=== PATIENT | male | born 1945 | race African-American/Black ===

== ENCOUNTER → 2018-07-06 | Outpatient (CLI) | payer MEDICARE ==
[2018-07-06 12:18] LABS: ALANINE AMINOTRANSFERASE 47 U/L (21-72); ALBUMIN 3.8 g/dL (3.5-5.0); ALKALINE PHOSPHATASE 69 U/L (38-126); ANION GAP 10 (5-19); ASPARTATE AMINO TRANSFERASE 51 U/L (17-59); BILIRUBIN,DIRECT 0.4 mg/dL (0.0-0.4); BILIRUBIN,TOTAL 0.7 mg/dL (0.2-1.3); BLOOD UREA NITROGEN 37 mg/dL (7-20); CALCIUM 9.6 mg/dL (8.4-10.2); CARBON DIOXIDE 26 mmol/L (22-30); CHLORIDE 105 mmol/L (98-107); GLUCOSE 89 mg/dL (75-110); POTASSIUM 4.3 mmol/L (3.6-5.0); SODIUM 140.8 mmol/L (137-145); TOTAL PROTEIN 7.3 g/dL (6.3-8.2)
== END ==
LOC: OD 11:06
PROVIDERS: ATTEND Internal Medicine Geriatric Medicine
DX: R06.02 Shortness of breath (principal); I10 Essential (primary) hypertension
CPT/HCPCS: 36415; 80053; 83880

== ENCOUNTER 2018-07-07 11:58 | Observation (INO) | payer MEDICARE ==
[2018-07-07] MEDS ORDERED: ASPIRIN 81 MG TABLET, CHEWABLE PO ONE (12:39)
--- NOTE | 2018-07-07 12:40 | ER Document Report ---
ED Medical Screen (RME) - General TRAVEL OUTSIDE OF THE [place] IN LAST 30 DAYS: No <SUHAIL CANALES - Last Filed: 07/07/18 12:39> <KELSI MORRISON - Last Filed: 07/07/18 15:12> - General Chief Complaint: Shortness Of Breath Stated Complaint: SHORTNESS OF BREATH Time Seen by Provider: 07/07/18 12:35 Notes: 72 years old male with a history of coronary artery disease presents today with progressive increasing shortness of breath. No chest pain. No fever chills. Examination-lower lung field has inspiratory rales (SUHAIL CANALES) - Related Data Allergies/Adverse Reactions: RAFAEL Inhibitors [Rafael Inhibitors] Allergy (Severe, Verified 07/07/18 14:04) Angioneurotic Edema ACEINHIBITORS [RAFAEL Inhibitors] Allergy (Severe, Verified 07/07/18 14:04) Angioneurotic Edema Past Medical History - Social History Chew tobacco use (# tins/day): No Frequency of alcohol use: Occasional Drug Abuse: None - Past Medical History Cardiac Medical History: Reports: Hx Heart Attack - x2, Hx Hypertension Renal/ Medical History: Denies: Hx Peritoneal Dialysis Past Surgical History: Reports: Hx Orthopedic Surgery - yang arms, yang legs <SUHAIL CANALES - Last Filed: 07/07/18 12:39> - Vital signs Vitals: Temp Pulse Resp BP Pulse Ox 97.7 F 89 20 121/75 96 07/07/18 12:04 07/07/18 12:04 07/07/18 12:04 07/07/18 12:04 07/07/18 12:04 Course <SUHAIL CANALES - Last Filed: 07/07/18 12:39> - Laboratory Result Diagrams: 07/07/18 13:40 07/07/18 13:40 - Diagnostic Test Radiology reviewed: Image reviewed - pulmonary edema, b/l pleura effusions, Reports reviewed <KELSI MORRISON - Last Filed: 07/07/18 15:12> - Re-evaluation Re-evalutation: 07/07/18 14:49 Patient's clinical findings as well as chest x-ray consistent with heart failure. Spoke to Dr. Arreola patient will be admitted for IV Lasix and kidney function monitoring. 07/07/18 15:11 (KELSI MORRISON) - Vital Signs Vital signs: Temp Pulse Resp BP Pulse Ox 97.7 F 89 39 H 136/89 H 94 07/07/18 12:04 07/07/18 12:04 07/07/18 14:00 07/07/18 13:45 07/07/18 14:00 - Laboratory Laboratory results interpreted by me: 07/07/18 07/07/18 07/07/18 13:40 13:40 13:40 Hgb 12.4 L Hct 37.3 L MCV 72 L MCH 23.9 L RDW 14.8 H BUN 28 H Direct Bilirubin 0.6 H NT-Pro-B Natriuret Pep 8440 H Doctor's Discharge <SUHAIL CANALES - Last Filed: 07/07/18 12:39> <KELSI MORRISON - Last Filed: 07/07/18 15:12> - Discharge Clinical Impression: Congestive heart failure Qualifiers: Heart failure type: unspecified Heart failure chronicity: unspecified Qualified Code(s): I50.9 - Heart failure, unspecified Condition: Fair Disposition: ADMITTED OBSERVATION Referrals: JOSÉ LUIS SHEPHERD MD [Primary Care Provider] - Follow up as needed
--- NOTE | 2018-07-07 13:53 | RADIOLOGY REPORT (SQ) ---
EXAM DESCRIPTION: CHEST SINGLE VIEW COMPLETED DATE/TIME: 07/07/2018 1:45 pm REASON FOR STUDY: Shortness of breath COMPARISON: None. EXAM PARAMETERS: NUMBER OF VIEWS: One view. TECHNIQUE: Single frontal radiographic view of the chest acquired. RADIATION DOSE: NA LIMITATIONS: large patient, portable technique FINDINGS: LUNGS AND PLEURA: Trace bilateral pleural effusions are present. There is pulmonary vascular congestion with mild right perihilar pulmonary edema. No pneumothorax. MEDIASTINUM AND HILAR STRUCTURES: No masses. Contour normal. HEART AND VASCULAR STRUCTURES: Moderate cardiomegaly BONES: No acute findings. HARDWARE: None in the chest. OTHER: No other significant finding. IMPRESSION: Moderate cardiomegaly Trace bilateral pleural effusions with right perihilar airspace disease worrisome for pulmonary edema . TECHNICAL DOCUMENTATION: JOB ID: [id number] [employer]- All Rights Reserved Reading location - IP/workstation name: [email or web address]
[2018-07-07 13:54] LABS: ABSOLUTE BASOPHILS # (AUTO) 0.1 10^3/uL (0.0-0.2); ABSOLUTE EOSINOPHILS # (AUTO) 0.4 10^3/uL (0.0-0.6); ABSOLUTE LYMPHOCYTES (AUTO) 1.9 10^3/uL (0.5-4.7); ABSOLUTE MONOCYTES (AUTO) 0.8 10^3/uL (0.1-1.4); ABSOLUTE NEUT (AUTO) 5.8 10^3/uL (1.7-8.2); EOSINOPHILS % (AUTO) 4.6 % (0-6); HEMATOCRIT 37.3 % (37.9-51.0); HEMOGLOBIN 12.4 g/dL (13.5-17.0); LYMPHOCYTES % (AUTO) 21.2 % (13-45); MEAN CORPUSCULAR HEMOGLOBIN 23.9 pg (27.0-33.4); MEAN CORPUSCULAR HGB CONC 33.1 g/dL (32.0-36.0); MEAN CORPUSCULAR VOLUME 72 fl (80-97); MONOCYTES % (AUTO) 9.2 % (3-13); PLATELET COUNT 239 10^3/uL (150-450); RED BLOOD COUNT 5.17 10^6/uL (4.35-5.55); RED CELL DISTRIBUTION WIDTH 14.8 % (11.5-14.0); TOTAL CELLS COUNTED % (AUTO) 100 %
[2018-07-07 14:14] LABS: ALANINE AMINOTRANSFERASE 46 U/L (21-72); ALBUMIN 3.8 g/dL (3.5-5.0); ALKALINE PHOSPHATASE 59 U/L (38-126); ANION GAP 8 (5-19); ASPARTATE AMINO TRANSFERASE 48 U/L (17-59); BILIRUBIN,DIRECT 0.6 mg/dL (0.0-0.4); BILIRUBIN,TOTAL 1.1 mg/dL (0.2-1.3); BLOOD UREA NITROGEN 28 mg/dL (7-20); CALCIUM 9.2 mg/dL (8.4-10.2); CARBON DIOXIDE 27 mmol/L (22-30); CHLORIDE 104 mmol/L (98-107); GLUCOSE 92 mg/dL (75-110); POTASSIUM 4.4 mmol/L (3.6-5.0); SODIUM 138.9 mmol/L (137-145); TOTAL PROTEIN 7.4 g/dL (6.3-8.2)
[2018-07-07 14:24] LABS: NT PRO BNP 8440 pg/mL (5-900)
[2018-07-07 14:25] LABS: TROPONIN I < 0.012 ng/mL
--- NOTE | 2018-07-07 15:12 | ER Document Report ---
ED Respiratory Problem - General Mode of Arrival: Ambulatory Information source: Patient TRAVEL OUTSIDE OF THE [place] IN LAST 30 DAYS: No <TYLER HIRSCH - Last Filed: 07/08/18 20:00> <KELSI MORRISON - Last Filed: 07/08/18 22:01> - General Chief Complaint: Shortness Of Breath Stated Complaint: SHORTNESS OF BREATH Time Seen by Provider: 07/07/18 12:35 Notes: 72-year-old male who presents to the emergency department today with complaints of shortness of breath. Patient states he had pneumonia 1 month ago and he has had increasing shortness of breath since getting over this pneumonia. Patient states he no longer has the cough that he had when he had the pneumonia. Patient states he noticed he gets very short of breath when lying flat or when walking. Patient states he was seen by his PCP yesterday for this who told him to increase his Lasix from 1 a day to 2 a day. Patient mentions that in 3 days his daughter is getting and he would like to be able to be there to walk her down the aisle. Patient denies any cough or shortness of breath. ( TYLER HIRSCH) - Related Data Allergies/Adverse Reactions: RAFAEL Inhibitors [Rafael Inhibitors] Allergy (Severe, Verified 07/07/18 14:04) Angioneurotic Edema ACEINHIBITORS [RAFAEL Inhibitors] Allergy (Severe, Verified 07/07/18 14:04) Angioneurotic Edema Past Medical History - General Information source: Patient, [facility] Records - Social History Smoking Status: Former Smoker Cigarette use (# per day): No Chew tobacco use (# tins/day): No Frequency of alcohol use: Occasional Drug Abuse: None Lives with: Family Family History: Reviewed & Not Pertinent Patient has suicidal ideation: No Patient has homicidal ideation: No - Past Medical History Cardiac Medical History: Reports: Hx Heart Attack - x2, Hx Hypertension Past Surgical History: Reports: Hx Orthopedic Surgery - yang arms, yang legs - Immunizations Hx Pneumococcal Vaccination: 07/11/11 <TYLER HIRSCH - Last Filed: 07/08/18 20:00> Review of Systems - Review of Systems Constitutional: No symptoms reported EENT: No symptoms reported Cardiovascular: denies: Chest pain Respiratory: See HPI, Short of breath. denies: Cough Gastrointestinal: No symptoms reported Genitourinary: No symptoms reported Male Genitourinary: No symptoms reported Musculoskeletal: No symptoms reported Skin: No symptoms reported Hematologic/Lymphatic: No symptoms reported Neurological/Psychological: No symptoms reported -: Yes All other systems reviewed and negative <TYLER HIRSCH - Last Filed: 07/08/18 20:00> Physical Exam <TYLER HIRSCH - Last Filed: 07/08/18 20:00> <KELSI MORRISON - Last Filed: 07/08/18 22:01> - Vital signs Vitals: Temp Pulse Resp BP Pulse Ox 97.7 F 89 20 121/75 96 07/07/18 12:04 07/07/18 12:04 07/07/18 12:04 07/07/18 12:04 07/07/18 12:04 - Notes Notes: Physical Exam: General: Alert, appears well. HEENT: Normocephalic. Atraumatic. PERRL. Extraocular movements intact. Oropharynx clear. Neck: Supple. Non-tender. Respiratory: No respiratory distress. Crackles at the bases bilaterally. Cardiovascular: Regular rate and rhythm. Abdominal: Normal Inspection. Non-tender. No distension. Normal Bowel Sounds. Back: Non-tender. No deformity or step off. Extremities: Moves all four extremities. Upper extremities: Normal inspection. Normal ROM. Lower extremities: 1+ edema bilaterally. Normal ROM. Neurological: Normal cognition. AAOx4. Normal speech. Psychological: Normal affect. Normal Mood. Skin: Warm. Dry. Normal color. (TYLER HIRSCH) Course - Laboratory Result Diagrams: 07/08/18 03:57 07/08/18 03:57 <TORREYGINATYLER - Last Filed: 07/08/18 20:00> - Laboratory Result Diagrams: 07/08/18 03:57 07/08/18 03:57 - Diagnostic Test Radiology reviewed: Image reviewed, Reports reviewed - Pulmonary edema and b/l pleural effusions <KELSI MORRISON - Last Filed: 07/08/18 22:01> - Re-evaluation Re-evalutation: 07/07/18 15:14 Patient's clinical presentation and labs and chest x-ray consistent with CHF exacerbation patient will be admitted to Dr. Locke for diuresis. (KELSI MORRISON) - Vital Signs Vital signs: Temp Pulse Resp BP Pulse Ox 97.8 F 82 16 110/74 98 10/04/18 18:25 07/08/18 18:25 07/08/18 18:25 07/08/18 18:25 07/08/18 18:25 - Laboratory Laboratory results interpreted by me: 07/07/18 07/07/18 07/07/18 13:40 13:40 13:40 Hgb 12.4 L Hct 37.3 L MCV 72 L MCH 23.9 L RDW 14.8 H BUN 28 H Direct Bilirubin 0.6 H NT-Pro-B Natriuret Pep 8440 H Discharge <TYLER HIRSCH - Last Filed: 07/08/18 20:00> - Discharge Admitting Provider: [facility] Unit Admitted: Telemetry <KELSI MORRISON - Last Filed: 07/08/18 22:01> - Discharge Clinical Impression: Congestive heart failure Qualifiers: Heart failure type: unspecified Heart failure chronicity: unspecified Qualified Code(s): I50.9 - Heart failure, unspecified Condition: Fair Disposition: ADMITTED OBSERVATION Scribe Attestation: 07/08/18 22:01 I personally performed the services described in the documentation, reviewed and edited the documentation which was dictated to the scribe in my presence, and it accurately records my words and actions. (KELSI MORRISON) Scribe Documentation - Scribe Written by Devine:: Don Yanez, 07/08/2018 2005 acting as scribe for :: Jamie <TYLER HIRSCH - Last Filed: 07/08/18 20:00>
[2018-07-07] MEDS ORDERED: FEBUXOSTAT 40 MG TABLET PO PRN (18:28)
--- NOTE | 2018-07-07 18:55 | PDOC H&P ---
History of Present Illness Admission Date/PCP: 07/07/18 15:55 JOSÉ LUIS JOAO Patient complains of: Difficulty with breathing History of Present Illness: ADOLFO GHOSH is a 72 year old male patient known to my practice who presented to the office yesterday with similar complain of worsening shortness of breath for couple of days after decrease of his oral Lasix short course therapy at 40 mg p.o bid. Patient was offered hospitalization but due to his daughter upcoming wedding he preferred outpatient oral management with increase of his Lasix to 40 mg p.o bid. Patient had outpatient NT-ProBNP evaluated and reported elevated at about 9000. He claimed that upon walking to his mail box earlier today he became very short of breath and weak that he had to hang on to nearby parked vehicle to avoid falling to the ground. He denied any associated chest pain, palpitation, diaphoresis, nausea or vomiting. Patient did described PND and 2 pillow orthopnea yesterday. He reported compliance with his medication and admitted to drinking lots of water. HE reported limited salt intake. His morbidities include HTN, CAD s/p old VT x 2, Hypothyroidism, osteoarthritis with chronic pain syndrome. He denied alcohol abuse or cigarette smoking. Past Medical History Cardiac Medical History: Reports: Myocardial Infarction - x2, Hypertension Endocrine Medical History: Reports: Hypothyroidism Past Surgical History Past Surgical History: Reports: Orthopedic Surgery - yang arms, yang legs Social History Smoking Status: Former Smoker - Advance Directive Resuscitation Status: Full Code Family History Parental Family History Reviewed: Yes Children Family History Reviewed: Yes Sibling(s) Family History Reviewed.: Yes Medication/Allergy Home Medications: Amlodipine Besylate [Norvasc 10 mg Tablet] 10 mg PO DAILY 07/07/18 Aspirin [Adult Low Dose Aspirin EC] 81 mg PO DAILY 07/07/18 Febuxostat [Uloric 40 mg Tablet] 40 mg PO DAILYP PRN 07/07/18 Furosemide [Lasix 40 mg Tablet] 40 mg PO DAILY 07/07/18 Levothyroxine Sodium [Synthroid] 125 mcg PO Q6AM 07/07/18 Allergies/Adverse Reactions: RAFAEL Inhibitors [Rafael Inhibitors] Allergy (Severe, Verified 07/07/18 14:04) Angioneurotic Edema ACEINHIBITORS [RAFAEL Inhibitors] Allergy (Severe, Verified 07/07/18 14:04) Angioneurotic Edema Review of Systems Constitutional: PRESENT: weakness Eyes: PRESENT: visual disturbances Ears: ABSENT: hearing changes Nose, Mouth, and Throat: ABSENT: as per HPI, headache(s), mouth pain, sore throat, vertigo, other Cardiovascular: PRESENT: dyspnea on exertion, orthropnea Respiratory: PRESENT: dyspnea Gastrointestinal: ABSENT: abdominal pain, constipation, diarrhea, hematemesis, hematochezia, nausea, vomiting Genitourinary: ABSENT: dysuria, hematuria Musculoskeletal: PRESENT: deformity - related to joint arthritis Integumentary: ABSENT: rash, wounds Neurological: ABSENT: abnormal gait, abnormal speech, confusion, dizziness, focal weakness, syncope Psychiatric: ABSENT: anxiety, depression, homidical ideation, suicidal ideation Endocrine: ABSENT: cold intolerance, heat intolerance, polydipsia, polyuria Hematologic/Lymphatic: ABSENT: easy bleeding, easy bruising, lymphadenopathy Allergic/Immunologic: ABSENT: seasonal rhinorrhea Physical Exam Vital Signs: Temp Pulse Resp BP Pulse Ox 99.1 F 89 26 H 141/82 H 94 07/07/18 17:04 07/07/18 12:04 07/07/18 17:02 07/07/18 17:02 07/07/18 17:02 General appearance: PRESENT: mild distress - respiratory distress Head exam: PRESENT: atraumatic, normocephalic Eye exam: PRESENT: conjunctiva pink, EOMI, PERRLA. ABSENT: scleral icterus Ear exam: PRESENT: normal external ear exam Mouth exam: PRESENT: moist Neck exam: PRESENT: full ROM, JVD - elevated. ABSENT: carotid bruit, lymphadenopathy, tenderness, thyromegaly, tracheal deviation Respiratory exam: PRESENT: clear to auscultation yang, decreased breath sounds - at lung bases Cardiovascular exam: PRESENT: RRR. ABSENT: diastolic murmur, rubs, systolic murmur Pulses: PRESENT: +1 pedal pulses bilateral Vascular exam: PRESENT: normal capillary refill. ABSENT: pallor GI/Abdominal exam: PRESENT: normal bowel sounds, soft. ABSENT: distended, guarding, mass, organolmegaly, rebound, tenderness Rectal exam: PRESENT: deferred Extremities exam: ABSENT: pedal edema Musculoskeletal exam: PRESENT: ambulatory Neurological exam: PRESENT: alert, awake, oriented to person, oriented to place , oriented to time, oriented to situation, CN II-XII grossly intact. ABSENT: motor sensory deficit Psychiatric exam: PRESENT: appropriate affect, normal mood. ABSENT: homicidal ideation, suicidal ideation Skin exam: PRESENT: dry, intact, warm. ABSENT: cyanosis, rash Results Laboratory Results: I reviewed his laboratory results on [employer] and form significant part of my medical decision making on this case. 07/07/18 16:30 Troponin I < 0.012 Impressions: Chest X-Ray 07/07/18 12:39 IMPRESSION: Moderate cardiomegaly Trace bilateral pleural effusions with right perihilar airspace disease worrisome for pulmonary edema. Assessment & Plan - Diagnosis (1) Acute systolic CHF (congestive heart failure), NYHA class 2 Is this a current diagnosis for this admission?: Yes Plan: See admitting attending orders. (2) HTN (hypertension) Qualifiers: Hypertension type: essential hypertension Qualified Code(s): I10 - Essential (primary) hypertension Is this a current diagnosis for this admission?: Yes Plan: See admitting attending orders. (3) Hypothyroidism Qualifiers: Hypothyroidism type: acquired Qualified Code(s): E03.9 - Hypothyroidism, unspecified Is this a current diagnosis for this admission?: Yes Plan: See admitting attending orders. (4) Coronary artery disease Qualifiers: Coronary Disease-Associated Artery/Lesion type: [place] artery [place] vs. transplanted heart: [place] heart Associated angina: without angina Qualified Code(s): I25.10 - Atherosclerotic heart disease of [place] coronary artery without angina pectoris Is this a current diagnosis for this admission?: Yes Plan: See admitting attending orders. (5) Old VT (myocardial infarction) Is this a current diagnosis for this admission?: Yes Plan: See admitting attending orders. - Time Time Spent: 50 to 70 Minutes Medications reviewed and adjusted accordingly: Yes Anticipated discharge: Home Within: within 24 hours - As per patient's request due to his daughter's wedding on 07/09/2018. - Inpatient Certification Based on my medical assessment, after consideration of the patient's comorbidities, presenting symptoms, or acuity I expect that the services needed warrant INPATIENT care.: No I certify that my determination is in accordance with my understanding of Medicare's requirements for reasonable and necessary INPATIENT services [42 CFR 412.3e].: No Post Hospital Care: D/C Rn Baby Documentation - Plan Summary Plan Summary: See admitting attending orders.
[2018-07-07] MEDS: VALSARTAN 160 MG TABLET PO SCH (20:32)
[2018-07-07] MEDS: CARVEDILOL 3.125 MG TABLET PO SCH (21:52)
[2018-07-07] MEDS: FUROSEMIDE INJ/PF 40 MG/4 ML SDV IV SCH (21:52)
[2018-07-08 05:05] LABS: ABSOLUTE BASOPHILS # (AUTO) 0.1 10^3/uL (0.0-0.2); ABSOLUTE EOSINOPHILS # (AUTO) 0.6 10^3/uL (0.0-0.6); ABSOLUTE MONOCYTES (AUTO) 0.8 10^3/uL (0.1-1.4); ABSOLUTE NEUT (AUTO) 4.5 10^3/uL (1.7-8.2); BASOPHILS % (AUTO) 0.8 % (0-2); EOSINOPHILS % (AUTO) 7.6 % (0-6); HEMATOCRIT 35.8 % (37.9-51.0); HEMOGLOBIN 11.5 g/dL (13.5-17.0); LYMPHOCYTES % (AUTO) 24.9 % (13-45); MEAN CORPUSCULAR HEMOGLOBIN 23.5 pg (27.0-33.4); MEAN CORPUSCULAR HGB CONC 32.3 g/dL (32.0-36.0); MEAN CORPUSCULAR VOLUME 73 fl (80-97); MONOCYTES % (AUTO) 10.1 % (3-13); PLATELET COUNT 191 10^3/uL (150-450); RED BLOOD COUNT 4.91 10^6/uL (4.35-5.55); SEGMENTED NEUTROPHILS % (AUTO) 56.6 % (42-78); TOTAL CELLS COUNTED % (AUTO) 100 %
[2018-07-08 05:27] LABS: ANION GAP 8 (5-19); BLOOD UREA NITROGEN 24 mg/dL (7-20); CALCIUM 8.9 mg/dL (8.4-10.2); CARBON DIOXIDE 26 mmol/L (22-30); CHLORIDE 106 mmol/L (98-107); CHOLESTEROL 136.96 mg/dL (0-200); GLUCOSE 87 mg/dL (75-110); POTASSIUM 3.8 mmol/L (3.6-5.0); SODIUM 140.1 mmol/L (137-145); TRIGLYCERIDES 60 mg/dL (<150)
[2018-07-08 05:37] LABS: DIRECT LDL 81 mg/dL (<100)
[2018-07-08 05:41] LABS: FREE T3 2.21 pg/mL (2.77-5.27); FREE T4 (FREE THYROXINE) 1.3 ng/dL (0.78-2.19)
[2018-07-08 05:54] LABS: THYROID STIMULATING HORMONE 3.83 uIU/mL (0.47-4.68)
[2018-07-08] MEDS ORDERED: LEVOTHYROXINE SODIUM 0.025 MG TABLET PO SCH (06:00)
[2018-07-08] MEDS ORDERED: (PENDING PHARMACY ID) (Levothyroxine Sodium [Synthroid] 125 MCG) PO SCH (06:00)
[2018-07-08] MEDS ORDERED: LANSOPRAZOLE 30 MG TAB.RAP.DR PO SCH (06:00)
[2018-07-08] MEDS ORDERED: LEVOTHYROXINE SODIUM 0.1 MG TABLET PO SCH (06:00)
--- NOTE | 2018-07-08 08:55 | EKG REPORT ---
SEVERITY:- ABNORMAL ECG - SINUS RHYTHM VENTRICULAR TRIGEMINY LEFT BUNDLE BRANCH BLOCK APCs AND VPCs : Confirmed by: Adrienne Oneil 08-Jul-2018 08:55:10
[2018-07-08] MEDS: CARVEDILOL 3.125 MG TABLET PO SCH (09:41)
[2018-07-08] MEDS: FUROSEMIDE INJ/PF 40 MG/4 ML SDV IV SCH (09:41)
[2018-07-08] MEDS ORDERED: ASPIRIN 81 MG TABLET, ENT COATED PO SCH (10:00)
[2018-07-08] MEDS ORDERED: ENOXAPARIN SODIUM INJ 40 MG/0.4 ML DISP.SYRIN SUBCUT SCH (10:00)
--- NOTE | 2018-07-08 13:21 | XCELERA REPORT ---
[address] [address] Transthoracic Echocardiogram Report Name: ADOLFO GHOSH Age: 72 yrs Gender: Male : 1945 Patient Status: Inpatient Patient Location: [address] [place] [address] Study Date: 07/08/2018 07:48 AM Height: 71 in Weight: 218 lb BSA: 2.2 m2 Procedure: A two-dimensional transthoracic echocardiogram with color flow and Doppler was performed. Study Quality: Fair. Reason For Study: Acute systolic CHF History: Acute systolic CHF. Ordering Physician: JOSÉ LUIS SHEPHERD Performed By: Chuyita Uriarte Interpretation Summary The left ventricle is moderately dilated. There is normal left ventricular wall thickness. LV EF is 25% Left ventricular systolic function is severely reduced. LV diastolic function not assessed. There is severe global hypokinesis of the left ventricle. The right ventricle is mildly dilated. The right ventricular systolic function is normal. The right atrium is mildly dilated. The left atrium is moderately dilated. There is no evidence of mitral valve prolapse. There is no vegetation seen on the mitral valve. There is no mitral valve stenosis. There is a moderate amount of mitral regurgitation There is no aortic valve stenosis There is no LVOT obstruction. There is aortic sclerosis without aortic stenosis. There is a mild amount of aortic regurgitation There is no tricuspid stenosis. There is a mild amount of tricuspid regurgitation There is mild pulmonary hypertension by echo RVSP is 36 mm of Hg , with RA mean of 10. There is no pulmonic valvular stenosis. There is a mild amount of pulmonic regurgitation The aortic root is normal size. There is no pericardial effusion. MMode/2D Measurements & Calculations RVDd: 4.0 cm LVIDd: 6.7 cm FS: 13.4 % Ao root diam: 2.7 cm IVSd: 1.0 cm LVIDs: 5.8 cm EDV(Teich): 231.2 ml Ao root area: 5.7 cm2 LVPWd: 1.2 cm ESV(Teich): 166.7 ml LA dimension: 4.8 cm EF(Teich): 27.9 % LVOT diam: 2.4 cm LVOT area: 4.4 cm2 Doppler Measurements & Calculations MV E max jamison: MV P1/2t max jamison: Ao V2 max: AI max jamison: 102.5 cm/sec 134.4 cm/sec 114.7 cm/sec 263.7 cm/sec MV A max jamison: MV P1/2t: 71.1 msec Ao max PG: AI max P.0 cm/sec MVA(P1/2t): 3.1 cm2 5.3 mmHg 30.4 mmHg MV E/A: 1.3 MV dec slope: [place](V,D): 3.3 cm2 AI dec slope: 142.3 cm/sec2 553.5 cm/sec2 AI P1/2t: MV dec time: 0.27 sec 542.8 msec LV V1 max PG: MR max jamison: PA V2 max: PI end-d jamison: 3.0 mmHg 355.8 cm/sec 89.6 cm/sec 105.9 cm/sec LV V1 max: MR max P.7 mmHg PA max P.1 cm/sec 3.2 mmHg TR max jamison: AV P1/2t-pr_phl: MV P1/2t-pr_phl: 252.3 cm/sec 545.0 msec 53.6 msec TR max P.5 mmHg Left Ventricle The left ventricle is moderately dilated. There is normal left ventricular wall thickness. LV EF is 25%. Left ventricular systolic function is severely reduced. LV diastolic function not assessed. There is severe global hypokinesis of the left ventricle. There is no thrombus. Right Ventricle The right ventricle is mildly dilated. The right ventricular systolic function is normal. Atria The right atrium is mildly dilated. The left atrium is moderately dilated. Mitral Valve There is no evidence of mitral valve prolapse. There is no vegetation seen on the mitral valve. There is no mitral valve stenosis. There is a moderate amount of mitral regurgitation. Aortic Valve There is no aortic valvular vegetation. There is no aortic valve stenosis. There is no LVOT obstruction. There is aortic sclerosis without aortic stenosis. There is a mild amount of aortic regurgitation. Tricuspid Valve There is no tricuspid stenosis. There is a mild amount of tricuspid regurgitation. There is mild pulmonary hypertension by echo. RVSP is 36 mm of Hg , with RA mean of 10. Pulmonic Valve There is no pulmonic valvular stenosis. There is a mild amount of pulmonic regurgitation. Great Vessels The aortic root is normal size. Effusions There is no pericardial effusion. : JOSÉ LUIS SHEPHERD > Aiyana Farmer
[2018-07-08 16:02] VITALS: BP 110/74
[2018-07-08] MEDS: VALSARTAN 160 MG TABLET PO SCH (17:32)
--- NOTE | 2018-07-08 18:15 | PDOC DISCHARGE SUMMARY ---
General - Admit/Disc Date/PCP Admission Date/Primary Care Provider: 07/07/18 15:55 JOSÉ LUIS JOAO Discharge Date: 07/08/18 - Discharge Diagnosis (1) Acute systolic CHF (congestive heart failure), NYHA class 2 Is this a current diagnosis for this admission?: Yes (2) HTN (hypertension) Is this a current diagnosis for this admission?: Yes (3) Hypothyroidism Is this a current diagnosis for this admission?: Yes (4) Coronary artery disease Is this a current diagnosis for this admission?: Yes (5) Old KS (myocardial infarction) Is this a current diagnosis for this admission?: Yes - Additional Information Resuscitation Status: Full Code Discharge Diet: Cardiac Discharge Activity: Activity As Tolerated, Balance Activity w/Rest, Weigh Daily Prescriptions: Carvedilol [Coreg 3.125 mg Tablet] 3.125 mg PO Q12 #60 tablet Potassium Chloride [Klor-Con 10] 10 meq PO BID #60 tablet.er Valsartan [Diovan 160 mg Tablet] 160 mg PO DAILY #30 tablet Home Medications: Aspirin [Adult Low Dose Aspirin EC] 81 mg PO DAILY 07/07/18 Febuxostat [Uloric 40 mg Tablet] 40 mg PO DAILYP PRN 07/07/18 Levothyroxine Sodium [Synthroid] 125 mcg PO Q6AM 07/07/18 Carvedilol [Coreg 3.125 mg Tablet] 3.125 mg PO Q12 #60 tablet 07/08/18 Furosemide [Lasix 40 mg Tablet] 40 mg PO BID 30 Days #60 07/08/18 Potassium Chloride [Klor-Con 10] 10 meq PO BID #60 tablet.er 07/08/18 Valsartan [Diovan 160 mg Tablet] 160 mg PO DAILY #30 tablet 07/08/18 History of Present Illness History of Present Illness: ADOLFO GHOSH is a 72 year old male patient known to my practice who presented to the office yesterday with similar complain of worsening shortness of breath for couple of days after decrease of his oral Lasix short course therapy at 40 mg p.o bid. Patient was offered hospitalization but due to his daughter upcoming wedding he preferred outpatient oral management with increase of his Lasix to 40 mg p.o bid. Patient had outpatient NT-Pro BNP evaluated and reported elevated at about 9000. He claimed that upon walking to his mail box earlier today he became very short of breath and weak that he had to hang on to nearby parked vehicle to avoid falling to the ground. He denied any associated chest pain, palpitation, diaphoresis, nausea or vomiting. Patient did described PND and 2 pillow orthopnea yesterday. He reported compliance with his medication and admitted to drinking lots of water. HE reported limited salt intake. His morbidities include HTN, CAD s/p old [place] x 2, Hypothyroidism, osteoarthritis with chronic pain syndrome. He denied alcohol abuse or cigarette smoking. Hospital Course Hospital Course: Patient responded to IV Lasix diuretic and adjustment in his medication regarding CHF management. His echocardiogram revealed LVEF at 25 % with severely reduced systolic function. There was severe global hypokinesis of the left ventricle. LV diastolic function was not assessed. Left ventricle and atrium were moderately dilated. There was moderate mitral regurgitation with mild aortic, pulmonary, and tricuspid valves regurgitation. There was mild pulmonary hypertension by echo criteria. There was no identifiable LV thrombus or mitral valve vegetation on echocardiogram. Patient will be discharge home today at his request so that he can attend his daughter's wedding tomorrow. He will follow up in the office as instructed upon discharge. We will make arrangement for outpatient cardiology consultation with possible cardiac catheterization. Physical Exam Vital Signs: Temp Pulse Resp BP Pulse Ox 97.8 F 82 16 110/74 98 07/08/18 16:00 07/08/18 16:00 07/08/18 16:00 07/08/18 16:00 07/08/18 16:00 Intake & Output 07/07/18 07/08/18 07/09/18 06:59 06:59 06:59 Intake Total 320 621 Output Total 800 750 Balance -480 -129 Weight 98.9 kg General appearance: PRESENT: no acute distress Head exam: PRESENT: atraumatic, normocephalic Eye exam: PRESENT: conjunctiva pink, EOMI, PERRLA. ABSENT: scleral icterus Ear exam: PRESENT: normal external ear exam Mouth exam: PRESENT: moist Respiratory exam: PRESENT: clear to auscultation yang Cardiovascular exam: PRESENT: RRR. ABSENT: diastolic murmur, rubs, systolic murmur Vascular exam: PRESENT: normal capillary refill. ABSENT: pallor GI/Abdominal exam: PRESENT: normal bowel sounds, soft. ABSENT: distended, guarding, mass, organolmegaly, rebound, tenderness Extremities exam: ABSENT: pedal edema Neurological exam: PRESENT: alert, awake, oriented to person, oriented to place , oriented to time, oriented to situation, CN II-XII grossly intact. ABSENT: motor sensory deficit Psychiatric exam: PRESENT: appropriate affect, normal mood. ABSENT: homicidal ideation, suicidal ideation Skin exam: PRESENT: dry, intact, warm. ABSENT: cyanosis, rash Results Laboratory Results: 07/08/18 03:57 07/08/18 03:57 07/08/18 07/08/18 07/08/18 03:57 03:57 03:57 WBC 8.0 RBC 4.91 Hgb 11.5 L Hct 35.8 L MCV 73 L MCH 23.5 L MCHC 32.3 RDW 15.0 H Plt Count 191 Seg Neutrophils % 56.6 Lymphocytes % 24.9 Monocytes % 10.1 Eosinophils % 7.6 H Basophils % 0.8 Absolute Neutrophils 4.5 Absolute Lymphocytes 2.0 Absolute Monocytes 0.8 Absolute Eosinophils 0.6 Absolute Basophils 0.1 Sodium 140.1 Potassium 3.8 Chloride 106 Carbon Dioxide 26 Anion Gap 8 BUN 24 H Creatinine 0.88 Est GFR ( Amer) > 60 Est GFR (Non-Af Amer) > 60 Glucose 87 Calcium 8.9 Magnesium 2.1 Triglycerides 60 Cholesterol 136.96 LDL Cholesterol Direct 81 VLDL Cholesterol 12.0 HDL Cholesterol 37 L TSH 3.83 Free T4 1.30 Free T3 pg/mL 2.21 L 07/07/18 16:30 Troponin I < 0.012 Impressions: Chest X-Ray 07/07/18 12:39 IMPRESSION: Moderate cardiomegaly Trace bilateral pleural effusions with right perihilar airspace disease worrisome for pulmonary edema. Qualifiers - * PATIENT BEING DISCHARGED WITH ANY OF THE FOLLOWING DIAGNOSIS: Heart Failure HF Pt being discharged on ACEI for LVEF less than 40%?: No Reason(s) for not prescribing ACEI:: Medical Contraindication HF Pt being discharged on ARBS for LVEF less than 40%?: Yes HF Pt with Afib discharged with Warfarin?: No Reason(s) for not prescribing Warfarin:: Not indicated HF Pt discharged on evidence-based Beta Neto:: Yes Plan Discharge Plan: Discharge home today. Follow up in the office as instructed upon discharge. I had extensive discussion with patient regarding his echocardiogram findings and need for cardiology follow up for further evaluation and management.
[2018-07-09] MEDS ORDERED: LANSOPRAZOLE 30 MG TAB.RAP.DR PO SCH (06:00)
== END 2018-07-08 19:03 | disposition home or self-care (01) ==
LOC: ER 11:58 → EH 15:55 → 5 18:45
PROVIDERS: ADMIT Internal Medicine Geriatric Medicine; ATTEND Internal Medicine Geriatric Medicine
DX: I11.0 Hypertensive heart disease with heart failure (principal); I50.21 Acute systolic (congestive) heart failure; E03.9 Hypothyroidism, unspecified; I25.10 Atherosclerotic heart disease of native coronary artery without angina pectoris; M19.90 Unspecified osteoarthritis, unspecified site; G89.4 Chronic pain syndrome; I27.20 Pulmonary hypertension, unspecified; I08.3 Combined rheumatic disorders of mitral, aortic and tricuspid valves; H53.9 Unspecified visual disturbance; I25.2 Old myocardial infarction; Z79.82 Long term (current) use of aspirin; Z79.899 Other long term (current) drug therapy; Z87.891 Personal history of nicotine dependence; Z87.01 Personal history of pneumonia (recurrent)
CPT/HCPCS: 93005; 99285; 36415 ×2; 84439; 83735 ×2; 84443; 85025 ×2; 80048; 80053; 84484; 84481; 80061; 83880; 93306; 71045; 93010; A9270 ×9; J1940 ×2; J1650; G0378

== ENCOUNTER 2018-09-04 05:13 | Inpatient (IN) | payer MEDICARE ==
--- NOTE | 2018-09-04 05:55 | ER Document Report ---
ED Medical Screen (RME) - General Chief Complaint: Breathing Difficulty Stated Complaint: DIFFICULTY BREATHING Notes: Does not 72-year-old male with past medical history of HTN, CAD s/p old [place] x 2, Hypothyroidism, osteoarthritis with chronic pain syndrome, and recent diagnosis of HFrEF presents to the emergency department for labored breathing, wheezing and "chest heaviness". Said it feels like there is fluid in his lungs and he said he had great difficulty just walking from the handicap parking spot in the emergency department parking lot to the front door. He denies fever, chest pain , dizziness, diaphoresis, palpitations, or falls. TRAVEL OUTSIDE OF THE [place] IN LAST 30 DAYS: No - Related Data Allergies/Adverse Reactions: RAFAEL Inhibitors [Rafael Inhibitors] Allergy (Severe, Verified 07/07/18 14:04) Angioneurotic Edema ACEINHIBITORS [RAFAEL Inhibitors] Allergy (Severe, Verified 07/07/18 14:04) Angioneurotic Edema Past Medical History - Past Medical History Cardiac Medical History: Reports: Hx Congestive Heart Failure, Hx Heart Attack - x2, Hx Hypertension Pulmonary Medical History: Reports: Hx Pneumonia Endocrine Medical History: Reports: Hx Hypothyroidism Renal/ Medical History: Denies: Hx Peritoneal Dialysis Past Surgical History: Reports: Hx Orthopedic Surgery - yang arms, yang legs Physical Exam - Respiratory Respiratory status: Respiratory distress - Mild, Other - End expiratory wheezing bilateral Doctor's Discharge - Discharge Referrals: JOSÉ LUIS SHEPHERD MD [Primary Care Provider] - Follow up as needed
[2018-09-04 06:23] LABS: ABSOLUTE BASOPHILS # (AUTO) 0.1 10^3/uL (0.0-0.2); ABSOLUTE EOSINOPHILS # (AUTO) 0.5 10^3/uL (0.0-0.6); ABSOLUTE LYMPHOCYTES (AUTO) 1.4 10^3/uL (0.5-4.7); ABSOLUTE MONOCYTES (AUTO) 0.7 10^3/uL (0.1-1.4); ABSOLUTE NEUT (AUTO) 5.2 10^3/uL (1.7-8.2); BASOPHILS % (AUTO) 0.7 % (0-2); EOSINOPHILS % (AUTO) 5.9 % (0-6); HEMATOCRIT 39.2 % (37.9-51.0); HEMOGLOBIN 12.7 g/dL (13.5-17.0); LYMPHOCYTES % (AUTO) 18.3 % (13-45); MEAN CORPUSCULAR HEMOGLOBIN 23.6 pg (27.0-33.4); MEAN CORPUSCULAR HGB CONC 32.4 g/dL (32.0-36.0); MEAN CORPUSCULAR VOLUME 73 fl (80-97); MONOCYTES % (AUTO) 9.5 % (3-13); PLATELET COUNT 231 10^3/uL (150-450); RED BLOOD COUNT 5.37 10^6/uL (4.35-5.55); RED CELL DISTRIBUTION WIDTH 16.1 % (11.5-14.0); SEGMENTED NEUTROPHILS % (AUTO) 65.6 % (42-78); TOTAL CELLS COUNTED % (AUTO) 100 %; WHITE BLOOD COUNT 7.9 10^3/uL (4.0-10.5)
[2018-09-04 06:37] LABS: ALANINE AMINOTRANSFERASE 76 U/L (21-72); ALBUMIN 3.6 g/dL (3.5-5.0); ALKALINE PHOSPHATASE 84 U/L (38-126); ANION GAP 12 (5-19); ASPARTATE AMINO TRANSFERASE 55 U/L (17-59); BILIRUBIN,DIRECT 0.2 mg/dL (0.0-0.4); BILIRUBIN,TOTAL 0.4 mg/dL (0.2-1.3); BLOOD UREA NITROGEN 30 mg/dL (7-20); CALCIUM 9.1 mg/dL (8.4-10.2); CARBON DIOXIDE 27 mmol/L (22-30); CHLORIDE 104 mmol/L (98-107); GLUCOSE 104 mg/dL (75-110); POTASSIUM 4.2 mmol/L (3.6-5.0); SODIUM 143.1 mmol/L (137-145); TOTAL PROTEIN 6.9 g/dL (6.3-8.2)
--- NOTE | 2018-09-04 06:38 | RADIOLOGY REPORT (SQ) ---
EXAM DESCRIPTION: XR CHEST 1 VIEW COMPLETED DATE/TME: 09/04/2018 05:56 CLINICAL HISTORY: 72 years, Male, dyspnea COMPARISON: 07/07/2018 chest x-ray NUMBER OF VIEWS: 1 TECHNIQUE: Frontal view the chest LIMITATIONS: None. FINDINGS: Stable cardiomegaly. Minor thickening of the right minor fissure. Lungs are otherwise clear. No pneumothorax. IMPRESSION: Stable cardiomegaly. Lungs are clear copyright 2011 [employer]- All Rights Reserved
[2018-09-04 06:49] LABS: NT PRO BNP 14200 pg/mL (5-900)
[2018-09-04 06:55] LABS: TROPONIN I < 0.012 ng/mL
--- NOTE | 2018-09-04 07:54 | EKG REPORT ---
SEVERITY:- ABNORMAL ECG - SINUS RHYTHM VENTRICULAR BIGEMINY PROBABLE LEFT ATRIAL ABNORMALITY LEFT BUNDLE BRANCH BLOCK : Confirmed by: Rodolfo Sheets MD 04-Sep-2018 07:53:57
--- NOTE | 2018-09-04 09:02 | RADIOLOGY REPORT (SQ) ---
EXAM DESCRIPTION: CTA CHEST COMPLETED DATE/TIME: 09/04/2018 8:42 am REASON FOR STUDY: sob/ elevated BNP no sign CHF/ ? PE COMPARISON: Same day chest radiograph TECHNIQUE: CT scan of the chest performed using helical scanning technique with dynamic intravenous contrast injection. Images reviewed with lung, soft tissue and bone windows. Reconstructed coronal and sagittal MPR images reviewed. Additional 3 dimensional post-processing performed to develop Maximal Intensity Projection images (OH P). All images stored on PACS. All CT scanners at this facility use dose modulation, iterative reconstruction, and/or weight based d osing when appropriate to reduce radiation dose to as low as reasonably achievable (ALARA). [facility]: Dose Right [facility]: CareDose [facility]: Dose Right [facility]: Teradose 4D [facility]: [facility] CONTRAST TYPE AND DOSE: contrast/concentration: Isovue 350.00 mg/ml; Total Contrast Delivered: 84.0 ml; Total Saline Delivered: 80.0 ml 84 mL IV of Omnipaque 350- low osmolar. Contrast bolus optimized for the pulmonary arteries. Not diagnostic for the aorta. RENAL FUNCTION: BUN 30 creatinine 1.24 RADIATION DOSE: CT Rad equipment meets quality standard of care and radiation dose reduction techniq ues were employed. CTDIvol: 20.4 - 79.4 mGy. DLP: 883 mGy-cm. . LIMITATIONS: None. FINDINGS: LUNGS AND PLEURA: Moderate right and trace left pleural effusion. Mild thickening of the interlobular septa of the lung apices and lung bases. No focal consolidation or pneumothorax. AORTA AND GREAT VESSELS: No aneurysm. Contrast bolus not optimized for the aorta. Mild calcified pl aque of the visualized aorta. Retroaortic left renal vein. HEART: Cardiomegaly. Mild coronary artery calcifications. Trace pericardial effusion. PULMONARY ARTERIES: No emboli visualized in the main pulmonary arteries or the segmental branches. HILAR AND MEDIASTINAL STRUCTURES: No identified masses. Multiple prominent mediastinal lymph nodes. HARDWARE: None in the chest. UPPER ABDOMEN: Moderate size hiatal hernia. Fat containing left adrenal lesion measuring 2.8 x 2.4 c m consistent with an adrenal myelolipoma. Trace fluid within the visualized upper abdomen. Trace am ount of fluid surrounds the visualize gallbladder. THYROID AND OTHER SOFT TISSUES: No masses. No adenopathy. BONES: No acute or significant finding. 3D MIPS: Confirm above findings. OTHER: No other significant finding. IMPRESSION: 1. No pulmonary embolus. 2. Cardiomegaly with a trace pericardial effusion and mild pulmonary vascular congestion. Moderate r ight and trace left pleural effusions. 3. Trace fluid within the visualized upper abdomen. Additional trace pericholecystic fluid which may be secondary to the additional free fluid within the abdomen or due to cholecystitis. If clinically indicated, dedicated right upper quadrant ultrasound can be obtained for further characterization. 4. Left adrenal myelolipoma. COMMENT: Quality ID # [id number]: Final reports with documentation of one or more dose reduction techniques (e.g., Automated exposure control, adjustment of the mA and/or kV according to patient size, use of iterative reconstruction technique) TECHNICAL DOCUMENTATION: JOB ID: [id number]- All Rights Reserved Reading location - IP/workstation name: [email or web address]
--- NOTE | 2018-09-04 10:24 | ER Document Report ---
ED Respiratory Problem - General Chief Complaint: Breathing Difficulty Stated Complaint: DIFFICULTY BREATHING Time Seen by Provider: 09/04/18 07:28 Mode of Arrival: Ambulatory Information source: Patient, Relative Notes: Patient is a 72-year-old male who returns emergency room with a complaint of shortness of breath. When asked what brought him here today patient states it started on June 28 when he came into this hospital and had pneumonia. He was in the hospital here from June 28 until July 09 he states from here he developed congestive heart failure. He states that since that time and even more recently he has had no energy he has had weakness in his legs because of fatigue. He informs me he is taking Lasix 40 mg twice daily and still he is getting more and more short of breath. He has gone to [facility] and has seen a byproducts supervisor there Dr. Moreno who did some PFT studies on him and I am unsure as to the results. He sees as his primary care provider. Patient states that he is just gone to the point where he cannot walk across the room before he gets short of breath. He denies any chest pain. He does not smoke. TRAVEL OUTSIDE OF THE [place] IN LAST 30 DAYS: No - HPI Patient complains to provider of: CHF, Short of breath Onset: Other - Has been developing since June and has not gotten any better even though pneumonia is gone. Duration: Continuous Initiating Event: Exertion Quality of pain: Achy Severity: Moderate Pain Level: 3 Context: Hx CHF Short of Breath: Moderate Chest pain/discomfort: Constant Cough: Nonproductive Associated symptoms: Cough, Difficulty breathing, Extertional dyspnea, Short of breath, Wheezing. denies: Fever Worsened by: Any type of exertion Similar symptoms previously: Yes Recently seen / treated by doctor: Yes - Related Data Allergies/Adverse Reactions: RAFAEL Inhibitors [Rafael Inhibitors] Allergy (Severe, Verified 07/07/18 14:04) Angioneurotic Edema ACEINHIBITORS [RAFAEL Inhibitors] Allergy (Severe, Verified 07/07/18 14:04) Angioneurotic Edema Past Medical History - General Information source: Patient - Social History Smoking Status: Former Smoker Cigarette use (# per day): No Chew tobacco use (# tins/day): No Smoking Education Provided: No Frequency of alcohol use: None Drug Abuse: None Lives with: Family Family History: Reviewed & Not Pertinent Patient has suicidal ideation: No Patient has homicidal ideation: No - Past Medical History Cardiac Medical History: Reports: Hx Congestive Heart Failure, Hx Heart Attack - x2, Hx Hypertension Pulmonary Medical History: Reports: Hx Pneumonia Endocrine Medical History: Reports: Hx Hypothyroidism Renal/ Medical History: Denies: Hx Peritoneal Dialysis Past Surgical History: Reports: Hx Orthopedic Surgery - yang arms, yang legs - Immunizations Hx Pneumococcal Vaccination: 07/11/11 Review of Systems - Review of Systems Constitutional: Malaise, Weakness EENT: No symptoms reported Cardiovascular: No symptoms reported Respiratory: See HPI, Cough, Short of breath, Wheezing Gastrointestinal: No symptoms reported Genitourinary: No symptoms reported Male Genitourinary: No symptoms reported Musculoskeletal: No symptoms reported Skin: No symptoms reported Hematologic/Lymphatic: No symptoms reported Neurological/Psychological: No symptoms reported -: Yes All other systems reviewed and negative Physical Exam - Vital signs Vitals: Pulse Ox 91 L 09/04/18 05:43 - Notes Notes: PHYSICAL EXAMINATION: GENERAL: Patient is a well-nourished well-developed 72-year-old male who is in no severe distress on physical exam today with he does appear uncomfortable with any movement.. HEAD: Atraumatic, normocephalic. EYES: Pupils equal round and reactive to light, extraocular movements intact, sclera anicteric, conjunctiva are normal. ENT: Nares patent, oropharynx clear without exudates. Moderately dry oral mucosa membranes. NECK: Normal range of motion, supple without lymphadenopathy LUNGS:auscultation patient's lung dave show he has bilateral breath sounds with breath sounds decreased throughout being greater on the right than the left. There is a faint inspiratory expiratory wheeze also noted. Mild amount of rales noted in the bases. HEART: Regular rate and rhythm without murmurs ABDOMEN: Soft, nontender, nondistended abdomen. No guarding, no rebound. No masses appreciated. Musculoskeletal: Normal range of motion, no pitting or edema. No cyanosis. NEUROLOGICAL: Cranial nerves grossly intact. Normal speech, normal gait. Normal sensory, motor exams PSYCH: Normal mood, normal affect. SKIN: Warm, Dry, normal turgor, no rashes or lesions noted. Course - Re-evaluation Re-evalutation: 09/04/18 10:[address] came back that showed a moderate right and a trace left pleural effusion as well as some mild pulmonary vascular congestion. I contacted Dr. Koenig who is covering for Dr. Shepherd and he is except the patient as an inpatient and will be by to see him sometime today - Vital Signs Vital signs: Temp Pulse Resp BP Pulse Ox 25 H 147/92 H 87 L 09/04/18 09:00 09/04/18 08:01 09/04/18 09:00 - Laboratory Result Diagrams: 09/04/18 06:08 09/04/18 06:08 Laboratory results interpreted by me: 09/04/18 09/04/18 09/04/18 06:08 06:08 06:08 Hgb 12.7 L MCV 73 L MCH 23.6 L RDW 16.1 H BUN 30 H Est GFR (Non-Af Amer) 57 L ALT 76 H NT-Pro-B Natriuret Pep 96911 H Discharge - Discharge Clinical Impression: Pleural effusion, Shortness of breath Congestive heart failure Qualifiers: Heart failure type: unspecified Heart failure chronicity: acute on chronic Qualified Code(s): I50.9 - Heart failure, unspecified Condition: Stable Disposition: ADMITTED INPATIENT Admitting Provider: Willie Unit Admitted: Telemetry Referrals: JOSÉ LUIS SHEPHERD MD [Primary Care Provider] - Follow up as needed
[2018-09-04] MEDS ORDERED: FUROSEMIDE INJ/PF 40 MG/4 ML SDV IV ONE (10:57)
[2018-09-04] MEDS ORDERED: TRAMADOL HCL 50 MG TABLET PO PRN (15:24)
[2018-09-04] MEDS ORDERED: (PENDING PHARMACY ID) (Levothyroxine Sodium [Synthroid] 125 MCG) PO SCH (15:30)
[2018-09-04] MEDS ORDERED: VALSARTAN 160 MG TABLET PO SCH (15:30)
[2018-09-04] MEDS ORDERED: CARVEDILOL 3.125 MG TABLET PO SCH (16:00)
[2018-09-04] MEDS ORDERED: ENOXAPARIN SODIUM INJ 40 MG/0.4 ML DISP.SYRIN SUBCUT ONE (16:00)
[2018-09-04 16:15] LABS: INTERNATIONAL RATION (INR) 1.19; PROTHROMBIN TIME 15.7 SEC (11.4-15.4)
[2018-09-04 16:16] LABS: PARTIAL THROMBOPLASTIN TIME 31.3 SEC (23.5-35.8)
[2018-09-04 16:39] LABS: CREATINE KINASE MB 0.83 ng/mL (<4.55); NT PRO BNP 14500 pg/mL (5-900)
[2018-09-04 16:40] LABS: TROPONIN I < 0.012 ng/mL
[2018-09-04 16:53] LABS: FREE T4 (FREE THYROXINE) 1.39 ng/dL (0.78-2.19); THYROID STIMULATING HORMONE 3.2 uIU/mL (0.47-4.68)
[2018-09-04] MEDS: ASPIRIN 81 MG TABLET, ENT COATED PO SCH (17:09)
[2018-09-04] MEDS: FUROSEMIDE 40 MG TABLET PO SCH (17:10)
[2018-09-04] MEDS: POTASSIUM CHLORIDE 10 MEQ CAPSULE.ER PO SCH (17:10)
--- NOTE | 2018-09-04 17:30 | PDOC H&P ---
History of Present Illness Admission Date/PCP: 09/04/18 11:01 JOSÉ LUIS SHEPHERD History of Present Illness: ADOLFO GHOSH is a 72 year old male,He has chronic systolic heart failure he came to the emergency room for evaluation of progressive shortness of breath, in the emergency room CTA chest was done, it demonstrated pleural effusion bilaterally the PVCs, the BNP was elevated he also has lower extremity edema. The last 2D echo from July 08, 2018, the estimated ejection fraction was 25% Past Medical History Cardiac Medical History: Reports: Congestive Heart Failure, Myocardial Infarction - x2, Hypertension Pulmonary Medical History: Reports: Pneumonia Endocrine Medical History: Reports: Hypothyroidism Psychiatric Medical History: Denies: Depression Past Surgical History Past Surgical History: Reports: Orthopedic Surgery - yang arms, yang legs Social History Lives with: Family Smoking Status: Never Smoker Frequency of Alcohol Use: None Hx Recreational Drug Use: No Drugs: None Hx Prescription Drug Abuse: No Family History Family History: Reviewed & Not Pertinent Parental Family History Reviewed: Yes Children Family History Reviewed: Yes Sibling(s) Family History Reviewed.: Yes Medication/Allergy Home Medications: Aspirin [Adult Low Dose Aspirin EC] 81 mg PO DAILY 07/07/18 Levothyroxine Sodium [Synthroid] 125 mcg PO Q6AM 07/07/18 Carvedilol [Coreg 3.125 mg Tablet] 3.125 mg PO Q12 #60 tablet 07/08/18 Furosemide [Lasix 40 mg Tablet] 40 mg PO BID 30 Days #60 07/08/18 Potassium Chloride [Klor-Con 10] 10 meq PO BID #60 tablet.er 07/08/18 Valsartan [Diovan 160 mg Tablet] 160 mg PO DAILY #30 tablet 07/08/18 Omeprazole 40 mg PO DAILY 09/04/18 Tramadol HCl [Ultram 50 mg Tablet] 50 mg PO TIDP PRN 09/04/18 Allergies/Adverse Reactions: RAFAEL Inhibitors [Rafael Inhibitors] Allergy (Severe, Verified 07/07/18 14:04) Angioneurotic Edema ACEINHIBITORS [RAFAEL Inhibitors] Allergy (Severe, Verified 07/07/18 14:04) Angioneurotic Edema Review of Systems Constitutional: ABSENT: chills, fever(s), headache(s), weight gain, weight loss Eyes: ABSENT: visual disturbances Ears: ABSENT: hearing changes Cardiovascular: PRESENT: dyspnea on exertion, edema Respiratory: PRESENT: dyspnea. ABSENT: cough, hemoptysis Gastrointestinal: ABSENT: abdominal pain, constipation, diarrhea, hematemesis, hematochezia, nausea, vomiting Genitourinary: ABSENT: dysuria, hematuria Musculoskeletal: ABSENT: joint swelling Integumentary: ABSENT: rash, wounds Neurological: ABSENT: abnormal gait, abnormal speech, confusion, dizziness, focal weakness, syncope Psychiatric: ABSENT: anxiety, depression, homidical ideation, suicidal ideation Endocrine: ABSENT: cold intolerance, heat intolerance, menstrual abnormalities, polydipsia, polyuria Hematologic/Lymphatic: ABSENT: easy bleeding, easy bruising, lymphadenopathy Physical Exam Vital Signs: Temp Pulse Resp BP Pulse Ox 93 22 H 146/87 H 97 09/04/18 13:54 09/04/18 13:14 09/04/18 13:14 09/04/18 13:14 General appearance: PRESENT: no acute distress Head exam: PRESENT: atraumatic, normocephalic Eye exam: PRESENT: conjunctiva pink, EOMI, PERRLA Ear exam: PRESENT: normal external ear exam Mouth exam: PRESENT: moist, tongue midline Neck exam: PRESENT: full ROM Respiratory exam: PRESENT: crackles Cardiovascular exam: PRESENT: RRR, +S1, +S2 Pulses: PRESENT: normal dorsalis pedis pul, +2 pedal pulses bilateral Vascular exam: PRESENT: normal capillary refill GI/Abdominal exam: PRESENT: normal bowel sounds, soft Rectal exam: PRESENT: deferred Extremities exam: PRESENT: pedal edema Neurological exam: PRESENT: alert, awake, oriented to person, oriented to place , oriented to time, oriented to situation, CN II-XII grossly intact Psychiatric exam: PRESENT: appropriate affect, normal mood Skin exam: PRESENT: dry, intact, warm Results Laboratory Results: 09/04/18 09/04/18 15:50 15:50 Magnesium 2.2 TSH 3.20 Free T4 1.39 09/04/18 09/04/18 15:50 15:50 Creatine Kinase 67 CK-MB (CK-2) 0.83 Troponin I < 0.012 NT-Pro-B Natriuret Pep 73614 H Impressions: Chest X-Ray 09/04/18 05:56 IMPRESSION: Stable cardiomegaly. Lungs are clear copyright 2011 [employer]- All Rights Reserved Chest/Abdomen CTA 12/01/18 07:44 IMPRESSION: 1. No pulmonary embolus. 2. Cardiomegaly with a trace pericardial effusion and mild pulmonary vascular congestion. Moderate right and trace left pleural effusions. 3. Trace fluid within the visualized upper abdomen. Additional trace pericholecystic fluid which may be secondary to the additional free fluid within the abdomen or due to cholecystitis. If clinically indicated, dedicated right upper quadrant ultrasound can be obtained for further characterization. 4. Left adrenal myelolipoma. Assessment & Plan - Diagnosis (1) Acute systolic (congestive) heart failure Is this a current diagnosis for this admission?: Yes Plan: He has chronic systolic heart failure now presented with decompensated acute systolic heart failure, but is admitted for management, patient be started on Entresto
[2018-09-04 22:25] LABS: CREATINE KINASE MB 0.73 ng/mL (<4.55)
[2018-09-04 22:31] LABS: TROPONIN I < 0.012 ng/mL
[2018-09-04 22:50] LABS: APPEARANCE,URINE CLEAR; BILIRUBIN,URINE NEGATIVE (NEGATIVE); COLOR,URINE YELLOW; GLUCOSE, URINE NEGATIVE (NEGATIVE); KETONES,URINE NEGATIVE (NEGATIVE); LEUKOCYTE ESTERASE,URINE NEGATIVE (NEGATIVE); NITRITE,URINE NEGATIVE (NEGATIVE); PROTEIN,URINE 100 mg/dL (NEGATIVE); URINE SPECIFIC GRAVITY 1.025
[2018-09-04] MEDS: SACUBITRIL/VALSARTAN 24 MG/26 MG TABLET PO SCH (23:13)
[2018-09-05 05:14] LABS: ABSOLUTE BASOPHILS # (AUTO) 0.1 10^3/uL (0.0-0.2); ABSOLUTE EOSINOPHILS # (AUTO) 0.4 10^3/uL (0.0-0.6); ABSOLUTE LYMPHOCYTES (AUTO) 2.2 10^3/uL (0.5-4.7); ABSOLUTE MONOCYTES (AUTO) 0.8 10^3/uL (0.1-1.4); ABSOLUTE NEUT (AUTO) 3.9 10^3/uL (1.7-8.2); BASOPHILS % (AUTO) 1.1 % (0-2); EOSINOPHILS % (AUTO) 4.8 % (0-6); HEMATOCRIT 38.8 % (37.9-51.0); HEMOGLOBIN 12.4 g/dL (13.5-17.0); LYMPHOCYTES % (AUTO) 29.5 % (13-45); MEAN CORPUSCULAR HEMOGLOBIN 23.4 pg (27.0-33.4); MEAN CORPUSCULAR HGB CONC 31.9 g/dL (32.0-36.0); MEAN CORPUSCULAR VOLUME 73 fl (80-97); MONOCYTES % (AUTO) 10.7 % (3-13); PLATELET COUNT 243 10^3/uL (150-450); RED CELL DISTRIBUTION WIDTH 16.3 % (11.5-14.0); SEGMENTED NEUTROPHILS % (AUTO) 53.9 % (42-78); TOTAL CELLS COUNTED % (AUTO) 100 %; WHITE BLOOD COUNT 7.3 10^3/uL (4.0-10.5)
[2018-09-05 05:35] LABS: ALANINE AMINOTRANSFERASE 60 U/L (21-72); ALBUMIN 2.9 g/dL (3.5-5.0); ALKALINE PHOSPHATASE 74 U/L (38-126); ASPARTATE AMINO TRANSFERASE 36 U/L (17-59); BILIRUBIN,DIRECT 0.3 mg/dL (0.0-0.4); BILIRUBIN,TOTAL 0.7 mg/dL (0.2-1.3); CHOLESTEROL 108.55 mg/dL (0-200); TOTAL PROTEIN 5.9 g/dL (6.3-8.2); TRIGLYCERIDES 71 mg/dL (<150)
[2018-09-05 05:46] LABS: CREATINE KINASE MB 0.84 ng/mL (<4.55); DIRECT LDL 80 mg/dL (<100); TROPONIN I < 0.012 ng/mL
[2018-09-05] MEDS ORDERED: LEVOTHYROXINE SODIUM 0.05 MG TABLET PO SCH (06:00)
[2018-09-05] MEDS ORDERED: ENOXAPARIN SODIUM INJ 40 MG/0.4 ML DISP.SYRIN SUBCUT SCH (10:00)
[2018-09-05] MEDS ORDERED: CARVEDILOL 3.125 MG TABLET PO SCH (10:00)
[2018-09-05] MEDS ORDERED: LANSOPRAZOLE 30 MG TAB.RAP.DR PO SCH (10:00)
[2018-09-05] MEDS: SACUBITRIL/VALSARTAN 24 MG/26 MG TABLET PO SCH (10:27)
[2018-09-05] MEDS: FUROSEMIDE 40 MG TABLET PO SCH (10:27)
[2018-09-05] MEDS: ASPIRIN 81 MG TABLET, ENT COATED PO SCH (10:27)
[2018-09-05] MEDS: POTASSIUM CHLORIDE 10 MEQ CAPSULE.ER PO SCH (10:27)
--- NOTE | 2018-09-05 12:27 | PDOC DISCHARGE SUMMARY ---
General - Admit/Disc Date/PCP Admission Date/Primary Care Provider: 09/04/18 11:01 JOSÉ LUIS JOAO Discharge Date: 09/05/18 - Discharge Diagnosis (1) Acute systolic (congestive) heart failure Is this a current diagnosis for this admission?: Yes - Additional Information Prescriptions: Sacubitril/Valsartan [Entresto 24 mg/26 mg Tablet] 1 tab PO Q12 #60 tablet Home Medications: Aspirin [Adult Low Dose Aspirin EC] 81 mg PO DAILY 07/07/18 Levothyroxine Sodium [Synthroid] 125 mcg PO Q6AM 07/07/18 Carvedilol [Coreg 3.125 mg Tablet] 3.125 mg PO Q12 #60 tablet 07/08/18 Furosemide [Lasix 40 mg Tablet] 40 mg PO BID 30 Days #60 07/08/18 Potassium Chloride [Klor-Con 10] 10 meq PO BID #60 tablet.er 07/08/18 Omeprazole 40 mg PO DAILY 09/04/18 Tramadol HCl [Ultram 50 mg Tablet] 50 mg PO TIDP PRN 09/04/18 Sacubitril/Valsartan [Entresto 24 mg/26 mg Tablet] 1 tab PO Q12 #60 tablet 09/05 History of Present Illness History of Present Illness: ADOLFO GHOSH is a 72 year old male,He has chronic systolic heart failure he came to the emergency room for evaluation of progressive shortness of breath, in the emergency room CTA chest was done, it demonstrated pleural effusion bilaterally the PVCs, the BNP was elevated he also has lower extremity edema.The last 2D echo from July 08, 2018, the estimated ejection fraction was 25% Hospital Course Hospital Course: Patient was admitted yesterday for decompensated chronic systolic heart failure , he presented with acute systolic heart failure, the medication was adjusted, he was started on Entresto. Patient is improved he wants to go home today. Physical Exam Vital Signs: Temp Pulse Resp BP Pulse Ox 97.4 F 69 17 127/82 H 93 09/05/18 03:53 09/05/18 07:00 09/05/18 03:53 09/05/18 03:53 09/05/18 03:53 Intake & Output 09/04/18 09/05/18 09/06/18 06:59 06:59 06:59 Weight 99 kg General appearance: PRESENT: no acute distress, well-developed, well-nourished Head exam: PRESENT: atraumatic, normocephalic Eye exam: PRESENT: conjunctiva pink, EOMI, PERRLA Ear exam: PRESENT: normal external ear exam Mouth exam: PRESENT: moist, tongue midline Neck exam: PRESENT: full ROM Respiratory exam: PRESENT: clear to auscultation yang Cardiovascular exam: PRESENT: RRR, +S1, +S2 Pulses: PRESENT: normal dorsalis pedis pul, +2 pedal pulses bilateral Vascular exam: PRESENT: normal capillary refill GI/Abdominal exam: PRESENT: normal bowel sounds, soft Rectal exam: PRESENT: deferred Neurological exam: PRESENT: alert, awake, oriented to person, oriented to place , oriented to time, oriented to situation, CN II-XII grossly intact Psychiatric exam: PRESENT: appropriate affect, normal mood Skin exam: PRESENT: dry, intact, warm Results Laboratory Results: 09/05/18 03:44 09/04/18 09/04/18 09/04/18 15:50 15:50 22:25 WBC RBC Hgb Hct MCV MCH MCHC RDW Plt Count Seg Neutrophils % Lymphocytes % Monocytes % Eosinophils % Basophils % Absolute Neutrophils Absolute Lymphocytes Absolute Monocytes Absolute Eosinophils Absolute Basophils Magnesium 2.2 Total Bilirubin AST ALT Alkaline Phosphatase Total Protein Albumin Triglycerides Cholesterol LDL Cholesterol Direct VLDL Cholesterol HDL Cholesterol TSH 3.20 Free T4 1.39 Urine Color YELLOW Urine Appearance CLEAR Urine pH 6.0 Ur Specific [place] 1.025 Urine Protein 100 H Urine Glucose (UA) NEGATIVE Urine Ketones NEGATIVE Urine Blood NEGATIVE Urine Nitrite NEGATIVE Ur Leukocyte Esterase NEGATIVE Urine WBC (Auto) 1 Urine RBC (Auto) 3 09/05/18 09/05/18 03:44 03:44 WBC 7.3 RBC 5.30 Hgb 12.4 L Hct 38.8 MCV 73 L MCH 23.4 L MCHC 31.9 L RDW 16.3 H Plt Count 243 Seg Neutrophils % 53.9 Lymphocytes % 29.5 Monocytes % 10.7 Eosinophils % 4.8 Basophils % 1.1 Absolute Neutrophils 3.9 Absolute Lymphocytes 2.2 Absolute Monocytes 0.8 Absolute Eosinophils 0.4 Absolute Basophils 0.1 Magnesium Total Bilirubin 0.7 AST 36 ALT 60 Alkaline Phosphatase 74 Total Protein 5.9 L Albumin 2.9 L Triglycerides 71 Cholesterol 108.55 LDL Cholesterol Direct 80 VLDL Cholesterol 14.0 HDL Cholesterol 26 L TSH Free T4 Urine Color Urine Appearance Urine pH Ur Specific [place] Urine Protein Urine Glucose (UA) Urine Ketones Urine Blood Urine Nitrite Ur Leukocyte Esterase Urine WBC (Auto) Urine RBC (Auto) 09/04/18 09/04/18 09/04/18 15:50 15:50 21:50 Creatine Kinase 67 59 CK-MB (CK-2) 0.83 Troponin I < 0.012 NT-Pro-B Natriuret Pep [id number] H 09/04/18 09/05/18 09/05/18 21:50 03:44 03:44 Creatine Kinase 59 CK-MB (CK-2) 0.73 0.84 Troponin I < 0.012 < 0.012 NT-Pro-B Natriuret Pep Impressions: Chest X-Ray 09/04/18 05:56 IMPRESSION: Stable cardiomegaly. Lungs are clear copyright 2011 [employer]- All Rights Reserved Chest/Abdomen CTA 09/04/18 07:44 IMPRESSION: 1. No pulmonary embolus. 2. Cardiomegaly with a trace pericardial effusion and mild pulmonary vascular congestion. Moderate right and trace left pleural effusions. 3. Trace fluid within the visualized upper abdomen. Additional trace pericholecystic fluid which may be secondary to the additional free fluid within the abdomen or due to cholecystitis. If clinically indicated, dedicated right upper quadrant ultrasound can be obtained for further characterization. 4. Left adrenal myelolipoma. Qualifiers - * PATIENT BEING DISCHARGED WITH ANY OF THE FOLLOWING DIAGNOSIS: Heart Failure VTE patient discharged on overlapping Therapy?: Yes HF Pt being discharged on ACEI for LVEF less than 40%?: Yes HF Pt being discharged on ARBS for LVEF less than 40%?: Yes HF Pt with Afib discharged with Warfarin?: No Reason(s) for not prescribing Warfarin:: Not indicated HF Pt discharged on evidence-based Beta Neto:: Yes
[2018-09-05 13:22] VITALS: BP 139/80
== END 2018-09-05 13:20 | disposition home or self-care (01) | DRG 293 ==
LOC: ER 05:13 → EH 11:01 → 4S 13:50
PROVIDERS: ADMIT Internal Medicine Geriatric Medicine; ATTEND Internal Medicine Geriatric Medicine
DX: I11.0 Hypertensive heart disease with heart failure (principal); I50.23 Acute on chronic systolic (congestive) heart failure; E03.9 Hypothyroidism, unspecified; Z87.891 Personal history of nicotine dependence; Z88.8 Allergy status to other drugs, medicaments and biological substances; Z79.82 Long term (current) use of aspirin; Z79.899 Other long term (current) drug therapy
CPT/HCPCS: 36415; 71045; 71275; 80053; 80061; 80076; 81001; 82550; 82553; 83036; 83735; 83880; 84439; 84443; 84484; 85025; 85610; 85730; 87040; 87086; 93005; 93010; 99285; J1650; J1940; J3490

== ENCOUNTER → 2018-11-04 | Outpatient (CLI) | payer MEDICARE ==
[2018-11-04 11:20] LABS: ABSOLUTE BASOPHILS # (AUTO) 0.1 10^3/uL (0.0-0.2); ABSOLUTE EOSINOPHILS # (AUTO) 0.2 10^3/uL (0.0-0.6); ABSOLUTE LYMPHOCYTES (AUTO) 1.5 10^3/uL (0.5-4.7); ABSOLUTE MONOCYTES (AUTO) 0.8 10^3/uL (0.1-1.4); ABSOLUTE NEUT (AUTO) 3.2 10^3/uL (1.7-8.2); BASOPHILS % (AUTO) 1.2 % (0-2); EOSINOPHILS % (AUTO) 3.7 % (0-6); HEMOGLOBIN 13.1 g/dL (13.5-17.0); LYMPHOCYTES % (AUTO) 25.1 % (13-45); MEAN CORPUSCULAR HEMOGLOBIN 23.4 pg (27.0-33.4); MEAN CORPUSCULAR VOLUME 73 fl (80-97); MONOCYTES % (AUTO) 14.6 % (3-13); PLATELET COUNT 246 10^3/uL (150-450); RED BLOOD COUNT 5.62 10^6/uL (4.35-5.55); SEGMENTED NEUTROPHILS % (AUTO) 55.4 % (42-78); TOTAL CELLS COUNTED % (AUTO) 100 %; WHITE BLOOD COUNT 5.8 10^3/uL (4.0-10.5)
[2018-11-04 11:39] LABS: ALANINE AMINOTRANSFERASE 32 U/L (21-72); ALBUMIN 3.3 g/dL (3.5-5.0); ALKALINE PHOSPHATASE 73 U/L (38-126); ANION GAP 8 (5-19); ASPARTATE AMINO TRANSFERASE 27 U/L (17-59); BILIRUBIN,DIRECT 0.4 mg/dL (0.0-0.4); BILIRUBIN,TOTAL 1.3 mg/dL (0.2-1.3); BLOOD UREA NITROGEN 30 mg/dL (7-20); CARBON DIOXIDE 29 mmol/L (22-30); CHLORIDE 103 mmol/L (98-107); CHOLESTEROL 80.54 mg/dL (0-200); GLUCOSE 94 mg/dL (75-110); SODIUM 139.8 mmol/L (137-145); TOTAL PROTEIN 6.3 g/dL (6.3-8.2); TRIGLYCERIDES 65 mg/dL (<150)
[2018-11-04 11:43] LABS: POTASSIUM 4.7 mmol/L (3.6-5.0)
[2018-11-04 11:50] LABS: DIRECT LDL 53 mg/dL (<100)
== END ==
LOC: LAB 11:01
PROVIDERS: ATTEND Internal Medicine Geriatric Medicine
DX: I50.22 Chronic systolic (congestive) heart failure (principal); I10 Essential (primary) hypertension; I11.0 Hypertensive heart disease with heart failure; I50.9 Heart failure, unspecified
CPT/HCPCS: 36415; 80053; 80061; 83880; 85025